=== PATIENT | male | born 1965 | race Caucasian/White ===

== ENCOUNTER → 2018-05-05 | Outpatient (REF) | payer OTHER ==
[2018-05-05 12:53] LABS: VITAMIN B12 LEVEL 748 PG/ML (247-911)
== END ==
LOC: M LAB REF 12:08
DX: D51.3 Other dietary vitamin B12 deficiency anemia (principal)

== ENCOUNTER → 2018-08-22 | Outpatient (REF) | payer OTHER, MEDICARE | LOC: M LAB REF 16:14 | PROVIDERS: ATTEND Surgery | DX: L98.9 Disorder of the skin and subcutaneous tissue, unspecified (principal) ==

== ENCOUNTER 2018-10-02 05:44 | Day surgery (SDC) | payer MEDICARE ==
[~2018-10-02] VITALS: Ht 182.9 cm; Wt 74.8 kg
[~2018-10-02 05:44] MED LIST: ASPI1TAB PO; LISI10TA4 PO; METF500T13 PO; VITA200048 PO; VITA500T3 PO; medical marijuana
[2018-10-02] MEDS ORDERED: ceFAZolin 1GM INJ (J0690 PER 500MG) As Ordered ONE (06:45)
[2018-10-02] MEDS ORDERED: LR 1,000 ML IV ONE (07:00)
[2018-10-02] MEDS ORDERED: ceFAZolin SOD 1 GM in D5W MINI-BAG PLUS 50 ML IV ONE (07:00)
[2018-10-02] MEDS ORDERED: LIDOCAINE W/EPINEPHRINE 1% 20ML VIAL As Ordered ONE (07:17)
[2018-10-02] MEDS ORDERED: LIDOCAINE 1% MDV 20ML VIAL As Ordered ONE (07:17)
[2018-10-02] MEDS ORDERED: ONDANSETRON 4MG/2ML VIAL (J2405) As Ordered ONE (07:20)
[2018-10-02] MEDS ORDERED: MIDAZOLAM INJ 2 MG/2 ML VIAL (J2250) As Ordered ONE (07:20)
[2018-10-02] MEDS ORDERED: fentaNYL 100 MCG/2 ML INJECTION (J3010) As Ordered ONE (07:20)
[2018-10-02] MEDS ORDERED: PROPOFOL 200 MG/20 ML VIAL As Ordered ONE ×2 (07:20→08:03)
[2018-10-02] MEDS ORDERED: KETAMINE HCL 200 MG/20 ML VIAL As Ordered ONE (07:45)
[2018-10-02] MEDS ORDERED: KETOROLAC 60 MG/2 ML VIAL (J1885) As Ordered ONE (08:11)
[2018-10-02] MEDS ORDERED: METOCLOPRAMIDE INJ 10MG/2ML VIAL (J2765) As Ordered ONE (08:11)
[2018-10-02] MEDS ORDERED: LIDOCAINE 2% INJ 100 MG/5 ML SDV (FOR ANES.) As Ordered ONE (08:14)
--- NOTE | 2018-10-02 08:19 | POST-OPPD ---
Postoperative Procedure Note Date Of Procedure: Oct 02, 2018 PREOPERATIVE DIAGNOSIS: Left first web space chronic wound POSTOPERATIVE DIAGNOSIS: Chronic wound left hand FINDINGS: open wound with callus left first web space PROCEDURE: Excisional biopsy left hand first web space SURGEON: Dr Polanco ANESTHESIA: LMA SPECIMENS: Left hand lesion Suture at 12 O'clock ESTIMATED BLOOD LOSS: 1 cc REPLACED: none DRAINS: none COMPLICATIONS: none POSTOPERATIVE CONDITION: stable ILANA POLANCO DO Oct 02, 2018 08:19
[2018-10-02] MEDS ORDERED: ACET30TAB PO (08:21)
[2018-10-02] MEDS ORDERED: HYDROMORPHONE HCL 0.5 MG/ 0.5 ML SYRINGE (J1170 PER 1) IV PRN (09:00)
[2018-10-02] MEDS ORDERED: PERCOCET 5MG/325MG TAB PO PRN (09:00)
[2018-10-02] MEDS ORDERED: ONDANSETRON 4MG/2ML VIAL (J2405) IV PRN (09:00)
[2018-10-02] MEDS ORDERED: fentaNYL 100 MCG/2 ML INJECTION (J3010) IV PRN (09:00)
[2018-10-02] MEDS ORDERED: LR 1,000 ML IV SCH (09:00)
[2018-10-02 09:55] VITALS: BP 160/80
--- NOTE | 2018-10-02 18:47 | RO ---
DATE OF PROCEDURE: 10/02/2018 PREPROCEDURE DIAGNOSIS: Left webspace chronic wound. POSTPROCEDURE DIAGNOSIS: Left webspace chronic wound. PROCEDURE: Excisional biopsy left hand first webspace. SURGEON: Dr. Nathalie Russell ANESTHESIA: General LMA. SPECIMEN: Left hand lesion. The lesion was marked with a suture at 12 o'clock. BLOOD LOSS: 1 mL. There was no replacement needed or drains. No complications. DESCRIPTION OF PROCEDURE: This is a 52-year-old male who has a chronic wound in the left hand first webspace, which has never healed and it has been there several months. The patient has been biopsied previously in the wound care center with squamous epithelium showing in the wound. He is scheduled for formal excisional biopsy. All the risks and benefits and alternatives discussed with the patient at length. He is ready to proceed. DESCRIPTION OF PROCEDURE: The patient was brought into the operating room, placed in supine position. Preoperative antibiotics were given. Sequential stockings placed on the lower calves with deep sedation given to the patient initially with median nerve block and a radial nerve block, and then it was converted to general per anesthesia for safety. Then, with outlined area of the wound with appropriate margins, about 3 mm, and then the incision was carried out in an elliptical fashion, the wound with margins completely excised marked with a suture at 12 o'clock and sent to pathology. Underlying the wound has thickened dermis and some callus formed, good bleeding; hemostasis was obtained with pressure and using slight electrocautery. It was 2-1/2 cm in length at this point, and it was approximated in layers with #4-0 Monocryl sutures and #4-0 nylon vertical mattress suture. No tension on the wound at any time. Xeroform and a bulky dressing was applied. The patient was extubated in the operating room without any difficulty, transferred to the recovery room in stable condition, completely awake. LEVY
== END 2018-10-02 10:00 | disposition home or self-care (01) ==
LOC: M SDC 05:44
PROVIDERS: ATTEND Plastic Surgery Surgery of the Hand
DX: L85.9 Epidermal thickening, unspecified (principal); E11.65 Type 2 diabetes mellitus with hyperglycemia; E11.40 Type 2 diabetes mellitus with diabetic neuropathy, unspecified; I10 Essential (primary) hypertension; D51.9 Vitamin B12 deficiency anemia, unspecified; Z89.429 Acquired absence of other toe(s), unspecified side; E07.9 Disorder of thyroid, unspecified; Z79.82 Long term (current) use of aspirin; Z79.84 Long term (current) use of oral hypoglycemic drugs
CPT/HCPCS: 11442; 88305; J0690; J1885; J2250; J2405; J2765; J3010

== ENCOUNTER → 2018-12-24 | Outpatient (REF) | payer MEDICARE ==
[~2018-12-24] MED LIST changes: +ACET-716 PO; -ASPI1TAB PO; +ASPI81TA26 PO
== END ==
LOC: M SFHCPLAZ 17:44
PROVIDERS: ATTEND Dermatology
DX: L81.4 Other melanin hyperpigmentation (principal); L57.0 Actinic keratosis; L57.8 Other skin changes due to chronic exposure to nonionizing radiation

== ENCOUNTER 2019-01-12 11:47 | Emergency (ER) | payer MEDICARE ==
[~2019-01-12] VITALS: Ht 182.9 cm; Wt 75.0 kg
[2019-01-12] MEDS ORDERED: AMOX500C PO (13:37)
[2019-01-12 13:45] VITALS: BP 145/86
== END 2019-01-12 13:46 | disposition home or self-care (01) ==
LOC: M ED 11:47
DX: L03.115 Cellulitis of right lower limb (principal); E11.9 Type 2 diabetes mellitus without complications; Z72.0 Tobacco use; F12.10 Cannabis abuse, uncomplicated; Z89.422 Acquired absence of other left toe(s); Z89.421 Acquired absence of other right toe(s); Z79.82 Long term (current) use of aspirin; Z79.84 Long term (current) use of oral hypoglycemic drugs; Z79.899 Other long term (current) drug therapy

== ENCOUNTER → 2019-01-29 | Outpatient (REF) | payer MEDICARE ==
[~2019-01-29] MED LIST changes: +AMOX500C PO
== END ==
LOC: M LAB REF 17:05
PROVIDERS: ATTEND Podiatrist
DX: L97.512 Non-pressure chronic ulcer of other part of right foot with fat layer exposed (principal); M79.671 Pain in right foot

== ENCOUNTER 2019-02-06 11:47 | Day surgery (SDC) | payer MEDICARE ==
[~2019-02-06] VITALS: Ht 180.3 cm; Wt 74.4 kg
[~2019-02-06 11:47] MED LIST changes: +BACITRACIN PWD 50,000 UNITS VIAL As Ordered ONE; +BUPIVACAINE HCL 0.5% 30 ML VIAL As Ordered ONE; +LIDOCAINE 2% MDV 20 ML VIAL As Ordered ONE; +LR 1,000 ML IV ONE; +NEOSPORIN GU IRRIG 20 ML VIAL As Ordered ONE; +dexameTHASONE 4 MG/ML 1ML VIAL (J1100) As Ordered ONE
[2019-02-06] MEDS ORDERED: GLYCOPYRROLATE INJ 0.2 MG/ML 2 ML VIAL As Ordered ONE (12:19)
[2019-02-06] MEDS ORDERED: KETAMINE HCL 200 MG/20 ML VIAL As Ordered ONE ×2 (12:19→13:12)
[2019-02-06] MEDS ORDERED: fentaNYL 100 MCG/2 ML INJECTION (J3010) As Ordered ONE (12:19)
[2019-02-06] MEDS ORDERED: LIDOCAINE 2% INJ 100 MG/5 ML SDV (FOR ANES.) As Ordered ONE (12:19)
[2019-02-06] MEDS ORDERED: PROPOFOL 200 MG/20 ML VIAL As Ordered ONE (12:19)
[2019-02-06] MEDS ORDERED: ONDANSETRON 4MG/2ML VIAL (J2405) As Ordered ONE (12:19)
[2019-02-06] MEDS ORDERED: MIDAZOLAM INJ 2 MG/2 ML VIAL (J2250) As Ordered ONE ×2 (12:19→12:57)
[2019-02-06] MEDS ORDERED: unknown antibiotic PO (12:34)
[2019-02-06] MEDS ORDERED: ePHEDrine SULFATE 25 MG/5 ML(5MG/ML) SYRINGE As Ordered ONE (13:23)
[2019-02-06 14:50] VITALS: BP 161/83
--- NOTE | 2019-02-06 14:52 | REP ---
RIGHT FOOT SERIES: THREE VIEWS. HISTORY: Status post exostectomy. Comparison right foot radiographs are from 2008. FINDINGS: The patient is status post transmetatarsal osteotomies of all five digits. There is a surgical drain in the stump soft tissues. A small quantity of subcutaneous gas is seen. There is diffuse osteopenia. Electronically Signed by Regan Tejeda MD 02/06/2019 03:16 P
--- NOTE | 2019-02-06 20:35 | RO ---
DATE OF PROCEDURE: 02/06/2019 PREPROCEDURE DIAGNOSIS: Spur plantar aspect first metatarsal right foot. POSTPROCEDURE DIAGNOSIS: Spur plantar aspect first metatarsal right foot. PROCEDURE: Exostectomy first and second metatarsals right foot. SURGEON: Forrest Castanon DPM BESSEMER REGULATOR: ANESTHESIA: Local monitored anesthesia care (MAC). IRRIGATION: Dilute bacitracin, neomycin and polymyxin B solution. HEMOSTASIS: None. ESTIMATED BLOOD LOSS: 10 mL. IMPLANTS UTILIZED: None. DRAINS UTILIZED: TLS drain. DESCRIPTION OF PROCEDURE: On 02/06/2019, this 53-year-old white male was taken from his hospital room to the operating room and placed on the operating table in the supine position. Following the induction of IV sedation and local and regional anesthesia, the right lower extremity was prepped and draped in the usual aseptic manner. Attention was directed to the patient's right foot. There was noted to be a small ulceration on the plantar surface of the right foot. At this time, a 3 cm incision was placed around the distal aspect of foot over a previous cicatrix. The skin was reflected in a dorsal manner and dissection was then carried around the bone. The first metatarsal bone had an area of bulging, and this osteotomy was performed just proximal to this area on a slight bias, taking more of the medial and plantar sides. After creating this cut, intraoperative C-arm image revealed prominence of the second metatarsal; therefore, the incision was lengthened 1 cm in a lateral direction exposing the second metatarsal and this was osteotomized to give a smooth parabola for the first, second, and third metatarsals. The fourth metatarsal, however, was quite, quite short and leaving the fifth metatarsal long, however, this was not addressed. The wound was flushed with copious amounts of dilute bacitracin, neomycin and polymyxin B solution. The first metatarsal segment was sent to pathology for aerobic and anaerobic exam. A TLS drain was then placed into the wound and was sutured to the skin. The skin was then sutured closed with #2-0 nylon suture in a simple interrupted-type fashion. Dry sterile dressing was applied consisting of Adaptic, 4 x 4's, 4 x 4 splints, ABD and Kerlix followed by a loosely wrapped Dustin wrap. The patient having apparently tolerated the surgical procedure well was taken from the operating room (OR) to the recovery room for further monitoring by the anesthesia department.
== END 2019-02-06 15:10 | disposition home or self-care (01) ==
LOC: M SDC 11:47
PROVIDERS: ATTEND Podiatrist
DX: M86.8X7 Other osteomyelitis, ankle and foot (principal); E11.40 Type 2 diabetes mellitus with diabetic neuropathy, unspecified; E11.621 Type 2 diabetes mellitus with foot ulcer; I10 Essential (primary) hypertension; E07.9 Disorder of thyroid, unspecified; D64.9 Anemia, unspecified; E53.8 Deficiency of other specified B group vitamins; K02.9 Dental caries, unspecified; H35.039 Hypertensive retinopathy, unspecified eye; F52.21 Male erectile disorder; R26.89 Other abnormalities of gait and mobility; R06.83 Snoring; L97.511 Non-pressure chronic ulcer of other part of right foot limited to breakdown of skin; L97.521 Non-pressure chronic ulcer of other part of left foot limited to breakdown of skin; L97.512 Non-pressure chronic ulcer of other part of right foot with fat layer exposed; L97.514 Non-pressure chronic ulcer of other part of right foot with necrosis of bone
CPT/HCPCS: 28122; 73630; 87070; 87075; 87077; 87186; 88304; 88311; J0690; J2250; J2405; J3010

== ENCOUNTER → 2020-06-29 | Outpatient (CLI) | payer MEDICARE ==
[~2020-06-29] MED LIST changes: +ATOR1TAB19; -BACITRACIN PWD 50,000 UNITS VIAL As Ordered ONE; -BUPIVACAINE HCL 0.5% 30 ML VIAL As Ordered ONE; +CYAN500T8 PO; -LIDOCAINE 2% MDV 20 ML VIAL As Ordered ONE; -LR 1,000 ML IV ONE; -NEOSPORIN GU IRRIG 20 ML VIAL As Ordered ONE; -VITA500T3 PO; -dexameTHASONE 4 MG/ML 1ML VIAL (J1100) As Ordered ONE; +unknown antibiotic PO
== END ==
LOC: M LABSMTC 12:27
PROVIDERS: ATTEND Anesthesiology
DX: Z01.818 Encounter for other preprocedural examination (principal)
CPT/HCPCS: C9803; U0003

== ENCOUNTER 2020-07-04 13:15 | Day surgery (SDC) | payer MEDICARE ==
[~2020-07-04] VITALS: Ht 182.9 cm; Wt 78.5 kg
[~2020-07-04 13:15] MED LIST changes: +NS 1,000 ML IV ONE
--- NOTE | 2020-07-04 14:36 | ROOR ---
Patient Name: El Colbert Procedure Date: 07/04/2020 2:09 PM Date of : 1965 Age: 54 Room: [facility] Gender: Male Note Status: Finalized Procedure: Total Colonoscopy to Cecum Indications: High risk colon cancer surveillance: Personal history of colonic polyps, Last colonoscopy: 2014 Providers: Helder Duenas MD Referring MD: Kristian Randhawa MD Requesting Provider: Medicines: Monitored Anesthesia Care Complications: No immediate complications. Procedure: Pre-Anesthesia Assessment: - The heart rate, respiratory rate, oxygen saturations, blood pressure, adequacy of pulmonary ventilation, and response to care were monitored throughout the procedure. The Colonoscope was introduced through the anus and advanced to the cecum, identified by appendiceal orifice and ileocecal valve. The colonoscopy was performed without difficulty. The patient tolerated the procedure well. The quality of the bowel preparation was excellent. Findings: The perianal and digital rectal examinations were normal. Non-bleeding internal hemorrhoids were found during retroflexion. The hemorrhoids were small and Grade I (internal hemorrhoids that do not prolapse). No other significant abnormalities were identified in a careful examination of the remainder of the colon. The exam was otherwise without abnormality on direct and retroflexion views. Impression: - Non-bleeding internal hemorrhoids. - The examination was otherwise normal on direct and retroflexion views. - No specimens collected. - The exam was otherwise normal to the cecum. Recommendation: - Patient has a contact number available for emergencies. The signs and symptoms of potential delayed complications were discussed with the patient. Return to normal activities tomorrow. Written discharge instructions were provided to the patient. - High fiber diet. - Discharge patient to home. - Continue present medications. - Repeat colonoscopy in 5 years for surveillance. - Return to referring physician. - The findings and recommendations were discussed with the patient. Helder Duenas MD Helder Duenas MD 07/04/2020 2:35:54 PM Electronically signed by Helder Duenas MD Number of Addenda: 0 Note Initiated On: 07/04/2020 2:09 PM Estimated Blood Loss: Estimated blood loss: none.
[2020-07-04] MEDS ORDERED: propofoL 200 MG/20 ML VIAL As Ordered ONE (14:40)
[2020-07-04 15:00] VITALS: BP 101/59
== END 2020-07-04 15:08 | disposition home or self-care (01) ==
LOC: M OPP 13:15
PROVIDERS: ATTEND Internal Medicine Gastroenterology
DX: Z12.11 Encounter for screening for malignant neoplasm of colon (principal); Z86.010 Personal history of colon polyps; K64.0 First degree hemorrhoids; E11.9 Type 2 diabetes mellitus without complications; Z79.82 Long term (current) use of aspirin; Z79.84 Long term (current) use of oral hypoglycemic drugs; Z79.899 Other long term (current) drug therapy

== ENCOUNTER → 2020-08-02 | Outpatient (CLI) | payer SELFPAY ==
[~2020-08-02] MED LIST changes: +CYAN500T14 PO; -CYAN500T8 PO; -NS 1,000 ML IV ONE
== END ==
LOC: M LABSMTC 17:26
PROVIDERS: ATTEND Pediatrics
DX: Z11.59 Encounter for screening for other viral diseases (principal)

== ENCOUNTER → 2020-11-03 | Outpatient (REF) | payer MEDICARE ==
[~2020-11-03] MED LIST changes: +LISI10TA22 PO; -LISI10TA4 PO
[2020-11-04 08:09] LABS: LDL DIRECT 50 mg/dL (0-99)
== END ==
LOC: M LAB REF 11:59
PROVIDERS: ATTEND Family Medicine
DX: E11.65 Type 2 diabetes mellitus with hyperglycemia (principal)

== ENCOUNTER → 2021-11-17 | Outpatient (REF) | payer MEDICARE ==
[2021-11-18 04:07] LABS: LDL DIRECT 37 mg/dL (0-99)
== END ==
LOC: M LAB REF 11:45
PROVIDERS: ATTEND Family Medicine
DX: E11.65 Type 2 diabetes mellitus with hyperglycemia (principal)

== ENCOUNTER 2023-12-07 15:39 | Inpatient (IN) | payer MEDICARE ==
[~2023-12-07] VITALS: Ht 182.9 cm; Wt 75.2 kg
[~2023-12-07 15:39] MED LIST changes: -ATOR1TAB19; +ATOR1TAB19 PO
[2023-12-07 16:32] LABS: BASO % 0.6 % (0.0-1.0); EOS # 0.2 10^3/uL (0.0-0.5); HEMATOCRIT 32.5 % (42.0-52.0); HEMOGLOBIN 11.1 g/dl (13.5-17.5); LYMPH # 1.8 10^3/uL (1.5-5.0); LYMPH % 29.5 % (24.0-44.0); MEAN CORPUSCULAR HEMOGLOBIN 31.4 pg (27.0-33.0); MEAN CORPUSCULAR HGB CONC 34.2 g/dl (32.0-36.5); MEAN CORPUSCULAR VOLUME 91.8 fl (80.0-96.0); MONO # 0.5 10^3/uL (0.0-0.8); MONO % 8.5 % (2.0-8.0); NEUTROPHILS # 3.6 10^3/uL (1.5-8.5); NEUTROPHILS % 58.1 % (36.0-66.0); PLATELET COUNT, AUTOMATED 189 10^3/uL (150-450); RED BLOOD COUNT 3.54 10^6/uL (4.30-6.10); WHITE BLOOD COUNT 6.2 10^3/uL (4.0-10.0)
[2023-12-07 16:45] LABS: INR 0.97; PARTIAL THROMBOPLASTIN TIME 29.7 SECONDS (24.8-34.2); PROTHROMBIN TIME 12.6 SECONDS (12.5-14.5)
[2023-12-07 16:55] LABS: CK-MB VALUE MASS 7.6 NG/ML (<3.6)
[2023-12-07 16:59] LABS: FREE T4 1.21 NG/DL (0.89-1.76); THYROID STIMULATING HORMONE 0.438 uIU/ML (0.55-4.78)
[2023-12-07 17:03] LABS: BLOOD UREA NITROGEN < 5 MG/DL (9-23); CALCIUM LEVEL 9.8 MG/DL (8.5-10.1); CARBON DIOXIDE LEVEL 27 MMOL/L (20-31); CHLORIDE LEVEL 100 MMOL/L (98-107); CPK CREATINE PHOSPHOKINASE 754 U/L (46-171); CREATININE FOR GFR 0.53 MG/DL (0.70-1.30); GLOMERULAR FILTRATION RATE > 60.0 (>56); GLUCOSE, FASTING 144 MG/DL (60-100); POTASSIUM SERUM 3.6 MMOL/L (3.5-5.1); SODIUM LEVEL 134 MMOL/L (136-145)
[2023-12-07] MEDS: NS 500 ML IV ONE (17:17)
[2023-12-07 18:12] LABS: CK-MB VALUE MASS 7.2 NG/ML (<3.6)
[2023-12-07 18:13] LABS: MB/CK RELATIVE INDEX 0.95 (< OR =4)
[2023-12-07] MEDS ORDERED: HOME MED LIST COMPLETE! XX SCH (18:15)
[2023-12-07 20:01] LABS: MB/CK RELATIVE INDEX 0.86 (< OR =4)
[2023-12-07] MEDS: METOCLOPRAMIDE INJ 10MG/2ML VIAL IV ONE (21:10)
[2023-12-08] VITALS (8 sets, daily range): BP systolic 130–171; BP diastolic 79–98; TEMP 97.9–98.8; O2SAT 98–99
[2023-12-08] MEDS ORDERED: GLUCOSE 4GM CHEW TABLET PO PRN (00:50)
[2023-12-08] MEDS ORDERED: GLUCAGON INJ 1MG VIAL SC PRN (00:50)
[2023-12-08] MEDS ORDERED: LORazepam 2 MG TAB PO PRN (00:50)
[2023-12-08] MEDS ORDERED: DEXTROSE 50% 50ML SYRINGE IV PRN (00:50)
[2023-12-08] MEDS ORDERED: ACETAMINOPHEN TAB 650MG DOSE (2X325MG) PO PRN (00:50)
[2023-12-08 07:14] LABS: BASO % 0.6 % (0.0-1.0); EOS # 0.1 10^3/uL (0.0-0.5); HEMOGLOBIN 11.7 g/dl (13.5-17.5); LYMPH # 1.5 10^3/uL (1.5-5.0); LYMPH % 27.4 % (24.0-44.0); MEAN CORPUSCULAR HEMOGLOBIN 30.5 pg (27.0-33.0); MEAN CORPUSCULAR HGB CONC 33.4 g/dl (32.0-36.5); MEAN CORPUSCULAR VOLUME 91.4 fl (80.0-96.0); MONO # 0.6 10^3/uL (0.0-0.8); NEUTROPHILS # 3.2 10^3/uL (1.5-8.5); NEUTROPHILS % 58.8 % (36.0-66.0); PLATELET COUNT, AUTOMATED 190 10^3/uL (150-450); RED BLOOD COUNT 3.83 10^6/uL (4.30-6.10); WHITE BLOOD COUNT 5.4 10^3/uL (4.0-10.0)
[2023-12-08 07:38] LABS: ALBUMIN 3.4 G/DL (3.2-5.2); ALKALINE PHOSPHATASE 108 U/L (46-116); ALT/SGPT 50 U/L (7.0-40); AST/SGOT 63 U/L (<34); BILIRUBIN,TOTAL 1.5 MG/DL (0.3-1.2); BLOOD UREA NITROGEN 7 MG/DL (9-23); CALCIUM LEVEL 9.2 MG/DL (8.5-10.1); CARBON DIOXIDE LEVEL 27 MMOL/L (20-31); CHLORIDE LEVEL 103 MMOL/L (98-107); CREATININE FOR GFR 0.51 MG/DL (0.70-1.30); GLOMERULAR FILTRATION RATE > 60.0 (>56); GLUCOSE, FASTING 114 MG/DL (60-100); POTASSIUM SERUM 3.6 MMOL/L (3.5-5.1); SODIUM LEVEL 137 MMOL/L (136-145); TOTAL PROTEIN 7.2 G/DL (5.7-8.2)
[2023-12-08] MEDS: ENOXAPARIN 40MG/0.4ML SYRINGE (J1650 PER 10MG) SC SCH (08:19)
[2023-12-08] MEDS: INSULIN LISPRO (NovoLOG) PER UNIT SC SCH ×2 (08:20→21:00)
[2023-12-08] MEDS: ASPIRIN 81MG ENTERIC TABLET PO SCH (08:20)
[2023-12-08] MEDS: ATORVASTATIN 10 MG TAB PO SCH (08:21)
[2023-12-08] MEDS: THIAMINE 100 MG TAB PO SCH (08:21)
[2023-12-08] MEDS: FOLIC ACID 1MG TAB PO SCH (08:21)
[2023-12-08] MEDS: OXAZEPAM 10MG CAP PO SCH (08:22)
[2023-12-08] MEDS: MULTIVITAMINS/MINERALS THERAP 1 TAB PO SCH (08:22)
[2023-12-09 05:50] VITALS: BP 114/62; TEMP 97.9; O2SAT 98
[2023-12-09 06:16] VITALS: BP 114/62
[2023-12-09 07:18] LABS: HEPATITIS B CORE ANTIBODY IGM NEGATIVE (NEGATIVE); HEPATITIS C VIRUS ABY INDEX < 0.02 INDEX (<0.8)
[2023-12-09 09:07] VITALS: BP 128/74
[2023-12-09] MEDS ORDERED: Multivitamins PO (10:20)
[2023-12-09] MEDS ORDERED: THIA100TA PO (10:20)
== END 2023-12-09 11:11 | disposition home or self-care (01) | DRG 74 ==
LOC: M ED 15:39 → M ED INP 23:52 → M MSPAV 12-08 02:05
PROVIDERS: ADMIT Family Medicine; ATTEND Student in an Organized Health Care Education/Training Program
DX: E11.42 Type 2 diabetes mellitus with diabetic polyneuropathy (principal); R29.6 Repeated falls; F10.10 Alcohol abuse, uncomplicated; R26.89 Other abnormalities of gait and mobility; I10 Essential (primary) hypertension; E78.5 Hyperlipidemia, unspecified; Z79.82 Long term (current) use of aspirin; Z79.84 Long term (current) use of oral hypoglycemic drugs; Z79.899 Other long term (current) drug therapy; Z89.421 Acquired absence of other right toe(s); Z89.422 Acquired absence of other left toe(s)

== ENCOUNTER → 2023-12-17 | Outpatient (REF) | payer MEDICARE ==
[~2023-12-17] MED LIST changes: +Multivitamins PO; +THIA100TA PO
== END ==
LOC: M LAB REF 18:06
PROVIDERS: ATTEND Family Medicine
DX: Z13.89 Encounter for screening for other disorder (principal)

== ENCOUNTER 2024-12-18 08:57 | Day surgery (SDC) | payer MEDICARE ==
[~2024-12-18] VITALS: Ht 182.9 cm; Wt 73.2 kg
[~2024-12-18 08:57] MED LIST changes: +ACETAMINOPHEN 1000MG/100ML IV BAG As Ordered ONE; +KETOROLAC 30 MG/ML 1ML VIAL As Ordered ONE; +LIDOCAINE 2% 100MG/5ML SDV (FOR ANES.) As Ordered ONE; +MIDAZOLAM INJ 2MG/2ML VIAL As Ordered ONE; +ONDANSETRON 4MG 2ML VIAL As Ordered ONE; +THERTAB52 PO; +fentaNYL 100 MCG/2 ML INJECTION As Ordered ONE; +propofoL 200 MG/20 ML VIAL As Ordered ONE
[2024-12-18] MEDS ORDERED: INSULIN LISPRO (NovoLOG) PER UNIT SC PRN (09:35)
[2024-12-18] MEDS ORDERED: DEXTROSE 50% 50ML SYRINGE IV PRN (09:35)
[2024-12-18] MEDS ORDERED: GLUCAGON INJ 1MG VIAL SC PRN (09:35)
[2024-12-18] MEDS ORDERED: GLUCOSE 4 GM CHEW PO PRN (09:35)
[2024-12-18] MEDS ORDERED: SLOWTAB2 PO (09:49)
[2024-12-18] MEDS ORDERED: SILD20TA11 PO (09:50)
[2024-12-18] MEDS: ceFAZolin SOD 2 GM IV ONCE IV ONE (10:40)
[2024-12-18] MEDS: LIDOCAINE 2% MDV 20ML VIAL As Ordered ONE (10:50)
[2024-12-18] MEDS ORDERED: ePHEDrine SULFATE 25 MG/5 ML(5MG/ML) SYRINGE As Ordered ONE (11:10)
[2024-12-18] MEDS: GENTAMICIN SULF 80MG/2ML VIAL As Ordered ONE (11:12)
[2024-12-18 12:47] VITALS: BP 132/60; TEMP 97.1; O2SAT 100
== END 2024-12-18 12:48 | disposition home or self-care (01) ==
LOC: M SDC 08:57
PROVIDERS: ATTEND Podiatrist
DX: M25.775 Osteophyte, left foot (principal); L97.529 Non-pressure chronic ulcer of other part of left foot with unspecified severity; E11.621 Type 2 diabetes mellitus with foot ulcer; G47.9 Sleep disorder, unspecified
CPT/HCPCS: 28288; 73630; 76000; 88300; J0131; J0665; J0690; J1580; J1885; J2250; J2405; J3010

== ENCOUNTER 2025-06-28 10:41 | Day surgery (SDC) | payer MEDICARE ==
[~2025-06-28] VITALS: Ht 182.9 cm; Wt 69.9 kg
[~2025-06-28 10:41] MED LIST changes: -ACETAMINOPHEN 1000MG/100ML IV BAG As Ordered ONE; -KETOROLAC 30 MG/ML 1ML VIAL As Ordered ONE; +LIDOCAINE 2% 100 MG/5 ML SDV (FOR ANES.) As Ordered ONE; -LIDOCAINE 2% 100MG/5ML SDV (FOR ANES.) As Ordered ONE; -MIDAZOLAM INJ 2MG/2ML VIAL As Ordered ONE; -ONDANSETRON 4MG 2ML VIAL As Ordered ONE; +SILD20TA64 PO; +SLOW1TAB3 PO; -fentaNYL 100 MCG/2 ML INJECTION As Ordered ONE; -propofoL 200 MG/20 ML VIAL As Ordered ONE
[2025-06-28] MEDS ORDERED: MIDAZOLAM INJ 2 MG/2 ML VIAL As Ordered ONE (12:04)
[2025-06-28 12:49] VITALS: BP 139/76; O2SAT 100
== END 2025-06-28 12:51 | disposition home or self-care (01) ==
LOC: M OPP 10:41
PROVIDERS: ATTEND Internal Medicine Gastroenterology
DX: Z12.11 Encounter for screening for malignant neoplasm of colon (principal); K64.0 First degree hemorrhoids; K57.30 Diverticulosis of large intestine without perforation or abscess without bleeding; Z86.0100 Personal history of colon polyps, unspecified; Z79.82 Long term (current) use of aspirin; Z79.84 Long term (current) use of oral hypoglycemic drugs; Z79.899 Other long term (current) drug therapy
CPT/HCPCS: G0105; J2250